=== PATIENT | male | born 1970 | race African-American/Black ===

== ENCOUNTER 2019-10-18 11:27 | Emergency (ER) | payer BC, OTHER ==
--- NOTE | 2019-10-18 12:27 | UC ---
FLU HPI - HPI Summary HPI Summary: started yesterday am with cough, fever (98-100F), sinus congestion, body aches and fatigue. No Flu vacc in years. denies known contact with COVID pos person, no recent travel. took OTC cold medicine with little relief - History of Current Complaint Chief Complaint: UCRespiratory Stated Complaint: RESP Time Seen by Provider: 10/18/19 11:31 Hx Obtained From: Patient Onset/Duration: Sudden Onset Severity Currently: None Associated Signs & Symptoms: Positive: Fever, Cough, Sore Throat - Allergy/Home Medications Allergies/Adverse Reactions: Allergies Allergy/AdvReac Type Severity Reaction Status Date / Time No Known Allergies Allergy Verified 08/31/16 13:17 Home Medications: Home Medications Pheniramine/P-Eph/Acetaminophn [Theraflu Flu & Sore Throat] 10/18/19 [History] PMH/Surg Hx/FS Hx/Imm Hx Previously Healthy: Yes - Surgical History Surgical History: Yes Surgery Procedure, Year, and Place: LT LUNG DRAINED,. left knee acl repair. DEVIATAED SEPTUM STRAIGHTENED. TONSILS - Family History Known Family History: Positive: None - Social History Occupation: Employed Full-time Lives: With Family Alcohol Use: Occasionally Substance Use Type: None Smoking Status (MU): Never Smoked Tobacco - Immunization History Most Recent Influenza Vaccination: no Review of Systems All Other Systems Reviewed And Are Negative: Yes Constitutional: Positive: Fever, Fatigue Skin: Positive: Negative ENT: Positive: Sinus Congestion. Negative: Sore Throat, Ear Ache Respiratory: Positive: Cough. Negative: Shortness Of Breath Cardiovascular: Positive: Negative, Chest Pain - burning CP with cough Gastrointestinal: Positive: Negative Musculoskeletal: Positive: Myalgia Neurological/Mental Status: Positive: Negative. Negative: Headache Psychological: Positive: Negative Is Patient Immunocompromised?: No Physical Exam - Summary Physical Exam Summary: To decrease the risk of transmission of possible COVID 19 this interview was done with telemedicine which does limit the physical examination Triage Information Reviewed: Yes Appearance: Well-Appearing, No Pain Distress, Well-Nourished Vital Signs Reviewed: Yes Eye Exam: Normal Eyes: Positive: Conjunctiva Clear ENT: Positive: Nasal congestion Neck exam: Normal Neck: Positive: Supple Respiratory: Positive: No respiratory distress, Other: - dry cough heard on telemed exam Neurological Exam: Normal Neurological: Positive: Alert Psychological Exam: Normal Flu Course/Dx - Course Course Of Treatment: Strep and flu were negative. 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 Patient will follow-up with [facility]. If the patient starts to feel worse they agree to report to the emergency department. - Differential Dx/Diagnosis Differential Diagnosis/HQI/PQRI: Bronchitis, Influenza, Upper Respiratory Infection, Other - COVID 19 Provider Diagnosis: Upper respiratory infection Discharge ED - Sign-Out/Discharge Documenting (check all that apply): Patient Departure All imaging exams completed and their final reports reviewed: No Studies - Discharge Plan Condition: Good Disposition: HOME Patient Education Materials: Upper Respiratory Infection (ED) Forms: COVID-19 Tested & Isolation Referrals: Bon Schuler MD [Primary Care Provider] - 1 Week (if no better) Additional Instructions: Your Strep and flu tests were negative. Given your symptoms, this could also be COVID 19 virus and therefore a COVID 19 test was obtained. Please follow-up with [facility]. If your symptoms worsen and you start to have difficulty breathing please call the Emergency room to alert them that you will be arriving for evaluation use your Theraflu from home for symptom relief Tylenol as directed for fever or pain - Billing Disposition and Condition Condition: GOOD Disposition: Home - Attestation Statements Provider Attestation: I was available for consult. This patient was seen by the RA. The patient was not presented to , seen by or examined by -Christos Fletcher MD
[2019-10-18 12:40] VITALS: BP 145/93
[2019-10-18 12:48] LABS: Influenza A Molecular Negative (Negative); Influenza B Molecular Negative (Negative)
== END 2019-10-18 13:12 | disposition home or self-care (01) ==
LOC: UCEAST 11:27
DX: J06.9 Acute upper respiratory infection, unspecified (principal); R50.9 Fever, unspecified; R05 Cough; J02.9 Acute pharyngitis, unspecified
CPT/HCPCS: 87651; 99211; G0463; U0002

== ENCOUNTER 2019-10-25 16:41 | Inpatient (IN) | payer OTHER ==
[2019-10-25] MEDS ORDERED: NS 0.9% 1000 ML** 1,000 ML IV ONE (17:05)
--- NOTE | 2019-10-25 17:09 | ED ---
HPI Febrile Illness - HPI Summary HPI Summary: 49 y/o male presented to [facility] after experiencing worsening COVID-19 symptoms in the past few days. Patient had a meeting in [place] on 10/12/19 and after returning to [place] began experiencing myalgia and headache. He tested positive for COVID-19 on 10/18/19. He is currently in self quarantine with his , who is also positive for COVID-19. In the past few days he has had productive cough , shortness of breath worsened by exertion, and fever. He was also slightly tachycardic in the room. He was instructed by the health department to come to the ED. Patient notes family history of diabetes and hypertension. He drinks alcohol, but does not smoke or use drugs. - History of Current Complaint Chief Complaint: EDShortnessOfBreath Time Seen by Provider: 10/25/19 16:43 Hx Obtained From: Patient Onset/Duration: Started Days Ago, Still Present Current Severity: Moderate Pain Intensity: 6 Pain Scale Used: 0-10 Numeric Associated Signs and Symptoms: Cough, Headache, Myalgia, SOB, Other: - fever, BETANCUR, tachycardia - Allergy/Home Medications Allergies/Adverse Reactions: Allergies Allergy/AdvReac Type Severity Reaction Status Date / Time No Known Allergies Allergy Verified 10/25/19 17:02 Home Medications: Home Medications Pheniramine/P-Eph/Acetaminophn [Theraflu Flu & Sore Throat] 1 packet PO DAILY PRN 10/18/19 [History Confirmed 10/25/19] PMH/Surg Hx/FS Hx/Imm Hx Endocrine/Hematology History: Reports: Hx Diabetes - type 2 Cardiovascular History: Reports: Hx Hypertension Denies: Hx Pacemaker/ICD Respiratory History: Reports: Hx Asthma History: Denies: Hx Renal Disease Sensory History: Denies: Hx Hearing Aid Psychiatric History: Denies: Hx Panic Disorder - Surgical History Surgery Procedure, Year, and Place: LT LUNG DRAINED,. left knee acl repair. DEVIATAED SEPTUM STRAIGHTENED. TONSILS Infectious Disease History: No Infectious Disease History: Denies: Traveled Outside the [place] in Last 30 Days - Family History Known Family History: Positive: Hypertension, Diabetes - Social History Alcohol Use: Occasionally Substance Use Type: Reports: None Smoking Status (MU): Never Smoked Tobacco Review of Systems Positive: Fever Positive: Other - tachycardia Positive: Shortness Of Breath, Cough, Other - BETANCUR Positive: Myalgia Positive: Headache All Other Systems Reviewed And Are Negative: Yes Physical Exam - Summary Physical Exam Summary: VITAL SIGNS: Reviewed. GENERAL: Patient is an obese male who is lying comfortable in the stretcher. Patient is not in any acute respiratory distress. HEAD AND FACE: No signs of trauma. No ecchymosis, hematomas or skull depressions. No sinus tenderness. EYES: PERRL, EOMI x 2, No injected conjunctiva, no nystagmus. EARS: Hearing grossly intact. Ear canals and tympanic membranes are within normal limits. MOUTH: Oropharynx within normal limits. NECK: Supple, trachea is midline, no adenopathy, no JVD, no carotid bruit, no c- spine tenderness, neck with full ROM. CHEST: Symmetric, no tenderness at palpation. LUNGS: Rhonchi in both lungs, crackles in both lung bases. Hypoxic with sat of 93 on RA CVS: Regular rhythm, slightly tachycardic, S1 and S2 present, no murmurs or gallops appreciated. ABDOMEN: Soft, non-tender. No signs of distention. No rebound, no guarding, and no masses palpated. Bowel sounds are normal. EXTREMITIES: FROM in all major joints, no edema, no cyanosis or clubbing. NEURO: Alert and oriented x 3. No acute neurological deficits. Speech is normal and follows commands. SKIN: Dry and warm. Triage Information Reviewed: Yes Vital Signs On Initial Exam: Initial Vitals Temp Pulse Resp BP Pulse Ox 103.1 F 105 20 141/77 93 10/25/19 16:57 10/25/19 16:57 10/25/19 16:57 10/25/19 16:57 10/25/19 16:57 Vital Signs Reviewed: Yes Procedures - Sedation Patient Received Moderate/Deep Sedation with Procedure: No Diagnostics - Vital Signs Vital Signs Temp Pulse Resp BP Pulse Ox 10/25/19 16:57 103.1 F 105 20 141/77 93 - Laboratory Result Diagrams: 10/25/19 17:30 10/25/19 17:30 Lab Statement: Any lab studies that have been ordered have been reviewed, and results considered in the medical decision making process. - Radiology chest xray Radiology Interpretation Completed By: ED Physician Summary of Radiographic Findings: Apparent cardiomegaly, vascular congestion, and left lower lobe infiltrate. This x-ray was reviewed and interpreted by the ED physician pending official read. - EKG 1756 Cardiac Rate: Tachycardia EKG Rhythm: Sinus Tachycardia Summary of EKG Findings: EKG at 1756 shows sinus tachycardia at 100bpm. No ST elevations. No STEMI. This EKG was reviewed and interpreted by the ED physician. Course/Dx - Course Assessment/Plan: 49 y/o male presented to [facility] after experiencing worsening COVID-19 symptoms in the past few days. Patient had a meeting in [place] on and after returning to [place] began experiencing myalgia and headache. He tested positive for COVID-19 on 10/18/19. He is currently in self quarantine with his , who is also positive for COVID-19. In the past few days he has had productive cough, shortness of breath worsened by exertion, and fever. He was also slightly tachycardic in the room. He was instructed by the health department to come to the ED. Patient notes family history of diabetes and hypertension. He drinks alcohol, but does not smoke or use drugs. In the ED course the patient was placed in a die maker bench stamping, IV access was obtained, IV fluids started at 100 CC per hour. I did not use 300/kg since the patient was positive for COVID-19. Past medical records reviewed. Blood test w/o a significant abnormality except for hemoglobin 13.4, hematocrit 39, lymphocytes of 0.9. D-dimer is 241. Sodium of 132, glucose 117, calcium 8.7, AST 65, AST 97, CPK 236 and CRP 122. Influenza A and B negative. CXR impression: Cardiomegaly. Questionable multifocal infiltrates. I started the patient with Azithromycin and Rocephin. I discussed the case with Dr. Montiel and she will admit patient to her service for further workup and management. - Diagnoses Provider Diagnoses: COVID-19, Pneumonia, Hypoxia - Provider Notifications Discussed Care Of Patient With: Marlys Montiel Time Discussed With Above Provider: 18:36 Instructed by Provider To: Other - Patient's case was discussed with Dr. Montiel, who will accept the patient for admission. Discharge ED - Sign-Out/Discharge Documenting (check all that apply): Patient Departure - admit - Discharge Plan Condition: Stable Disposition: ADMITTED TO [facility] Referrals: Bon Schuler MD [Medical Doctor] - - Billing Disposition and Condition Condition: STABLE Disposition: Admitted to [facility] - Attestation Statements Document Initiated by Jeanette: Yes Documenting Scribe: Rishabh Monsivais Provider For Whom Jeanette is Documenting (Include Credential): Raleigh Oh MD Scribe Attestation: Rishabh Powers, scribed for Raleigh Oh MD on 10/25/19 at 1851. Scribe Documentation Reviewed: Yes Provider Attestation: The documentation as recorded by the rudolphibRishabh ricci accurately reflects the service I personally performed and the decisions made by , Raleigh Oh MD Status of Scribe Document: Viewed
[2019-10-25] MEDS ORDERED: Acetaminophen TAB* 325 MG PO ONE (17:16)
[2019-10-25 18:08] LABS: ABS Lymphocytes 0.9 10^3/ul (1.0-4.8); ABS Monocytes 0.6 10^3/ul (0-0.8); ABS Neutrophils 6.2 10^3/ul (1.5-7.7); Eosinophil % 0.1 %; Hematocrit 39 % (42-52); Hemoglobin 13.4 g/dL (14.0-18.0); Lymphocyte % 11.9 %; Mean Corpuscular HGB Conc 34 g/dL (31-36); Mean Corpuscular Hemoglobin 29 pg (27-31); Mean Corpuscular Volume 85 fL (80-94); Mean Platelet Volume 8.2 fL (7.4-10.4); Nucleated Red Blood Cells % 0.1; Platelet Count 248 10^3/uL (150-450); Red Blood Count 4.62 10^6 /uL (4.18-5.48); Red Cell Distribution Width 13 % (10-15); White Blood Count 7.8 10^3/uL (3.5-10.8)
[2019-10-25] MEDS ORDERED: Azithromycin 500 mg/250 ml NS 500 MG/250 ML BAG IVPB ONE (18:24)
[2019-10-25] MEDS ORDERED: cefTRIAXone(*) 1 GM in NS 0.9% 50 ML* 50 ML IVPB ONE (18:24)
[2019-10-25 18:25] LABS: Albumin 3.7 g/dL (3.2-5.2); Albumin/Globulin Ratio 0.9 (1-3); C Reactive Protein 122.9 mg/L (<8.01); Calcium 8.5 mg/dL (8.6-10.3); EGFR African American 88.7 (>60); EGFR Non-African American 73.3 (>60); Globulin 3.9 g/dL (2-4); Phosphorus 2.5 mg/dL (2.5-5.0); Potassium 3.9 mmol/L (3.5-5.0); Total Bilirubin 0.6 mg/dL (0.2-1.0); Total Protein 7.6 g/dL (6.4-8.9)
[2019-10-25 18:27] LABS: Troponin I 0.01 ng/mL (<0.03)
[2019-10-25 18:29] LABS: CKMB ng/mL 1.1 ng/mL (0.6-6.3)
[2019-10-25 18:35] LABS: Influenza A Molecular Negative (Negative); Influenza B Molecular Negative (Negative)
[2019-10-25] MEDS ORDERED: Albuterol HFA INHALER* 8 gm MDI INH PRN (19:05)
[2019-10-25] MEDS ORDERED: Al Hydrox/Mg Hydrox/Simet LIQ* 30 ML UDC PO PRN (19:37)
[2019-10-25] MEDS ORDERED: Senna TAB 8.6 mg* TAB PO PRN (19:37)
[2019-10-25] MEDS ORDERED: Fluticasone NASAL SPRAY 50MCG* 16 gm SPRAY BTL BOTH NARES PRN (19:40)
[2019-10-25] MEDS ORDERED: Dextrose 50% Syringe 50 ML* 25 GM/50 ML SYRINGE IV PUSH PRN (19:56)
[2019-10-25] MEDS: Enoxaparin(*) 40 MG/0.4 ML SYR SUBCUT SCH (20:20)
--- NOTE | 2019-10-25 21:08 | HP ---
HISTORY AND PHYSICAL: DATE OF ADMISSION: ADDENDUM: Upon further review, I will be discontinuing the patient's IV fluids that Dr. Oh ordered as I am concerned that the patient may be post ARDS and I would like to avoid large volume fluids which is part of the sepsis bundle, but this is why I am avoiding it, and I am canceling the ceftriaxone because I do not believe that he needs bacterial pneumonia coverage. He does not have oligocytosis. He does not appear to have a focal consolidation on chest x-ray. Additionally, I did discuss the Plaquenil dosing with pharmacy. We do have a sufficient supply at this time, so I will be prescribing that in addition to the azithromycin at 400 mg p.o. b.i.d. for 1 day and then 400 mg daily for 4 days. CHRISTINE LAGUNA [id number]/[facility] #: [id number] [facility] MEDICAL CENTERLisa
[2019-10-25] MEDS: guaiFENesin ER TAB 600 MG PO SCH (21:47)
[2019-10-25] MEDS: Hydroxychloroquine TAB* 200 MG PO SCH (21:48)
--- NOTE | 2019-10-26 00:40 | HP ---
CC: Ralf Quigley NP * HISTORY AND PHYSICAL: DATE OF ADMISSION: 10/25/19 PROVIDER: CHRISTINE Henderson ATTENDING PHYSICIAN WHILE IN THE HOSPITAL: Dr. Marlys Montiel * (dictated by CHRISTINE Henderson) PRIMARY CARE PROVIDER: Ralf Quigley NP CHIEF COMPLAINT: Dyspnea on exertion and fever. HISTORY OF PRESENT ILLNESS: Bon Hernandez is a 49-year-old black male with past medical history significant for diabetes mellitus, type 2, and hypertension , who presents to the emergency department today due to noted fever and dyspnea on exertion that has been progressively worse. The patient started feeling significant body aches and "felt like I was hit by a truck" on 10/17/19. The following day, he went to an urgent care and was tested for COVID and approximately 3 to 4 days later, he was told that he was positive for COVID-19. Since that time, he has felt continued body aches that do feel somewhat better with Tylenol. He has been avoiding NSAIDs. He started having a cough 4 to 5 days ago and has been intermittently dry and intermittently productive. Additionally, he has nasal congestion and denies a sore throat. He has been checking his temperature everyday and has been afebrile until today. He has been feeling short of breath after coughing, but starting yesterday, he has been having dyspnea while exerting himself and having long recovery time afterwards. He has had intermittent nausea that goes away on its own. He has had a few episodes of diarrhea, but denies vomiting and abdominal pain. He has been having intermittent headaches as well that get better with Tylenol use. He denies chest pain. Of note, the patient used to live in this area and moved to [place], and recently has been back to this area, and has not yet established with Ralf Quigley in person, but does have a reestablishment primary care appointment scheduled for approximately 2 weeks from now. He has struggled with medication adherence due to insurance issues, and told me he was previously prescribed insulin and lisinopril, which he has not been taking. PAST MEDICAL HISTORY: 1. Hypertension. 2. Diabetes mellitus, type 2. 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 PAST SURGICAL HISTORY: 1. Tonsillectomy, adenoidectomy, and deviated septum repair to cure obstructive sleep apnea. 2. Left meniscus repair. HOME MEDICATIONS: 1. Thera-Flu 1 packet p.o. daily p.r.n. body aches, fever, chills. As previously mentioned, the patient has been prescribed insulin and lisinopril , which he has not been taking due to insurance issues. ALLERGIES: No known drug allergies. FAMILY HISTORY: Parents are living. His father and mother both have history of hypertension and otherwise no medical problems to his knowledge. Father is in his 80s and his mother is in early 60s. SOCIAL HISTORY: The patient works at the [employer]. He lives with his girlfriend and her 2 children. He has no kids of his own and is not . He does not use tobacco and never has, drinks infrequently such as approximately once a year, and denies illicit drug use. His medical surrogate decision maker is his girlfriend, Damaris Donovan, phone number [phone] and alternatively his sister, whose full name and number I was unable to collect. REVIEW OF SYSTEMS: An 11-point review of systems was completed. All pertinent positives and negatives are above in the HPI. All other systems are negative. PHYSICAL EXAMINATION GENERAL: Obese black male, who appears as stated age, lying upright in hospital bed, appearing comfortable, in no distress, not using respiratory muscles. VITAL SIGNS: Temperature 103.1, heart rate 108, respiratory rate 20, oxygen saturation 92% on room air but did have 89% on room air with exertion, blood pressure 141/77. HEENT: Eyes: PERRL. Sclerae anicteric. Left eyelid minimally more depressed than the right consistent with Manning's palsy diagnosis. ENT: Mucous membranes moist. NECK: Supple. Trachea midline. LUNGS: Clear to auscultation throughout. CARDIO: Regular rate and rhythm without murmurs, rubs, or gallops. ABDOMEN: Soft, nontender, nondistended. EXTREMITIES: No clubbing, cyanosis or edema. NEUROLOGIC: The patient is alert and oriented x3. Able to move all extremities. SKIN: Warm, dry, intact. DIAGNOSTIC STUDIES/LAB DATA: White blood cell count 7.8, hemoglobin 13.4, hematocrit 39, platelet count 248, percent neutrophils 80.1%, lymphocytes 11.9, absolute lymphocytes 0.9. D-dimer 241. ABG: pH 7.47, PCO2 of 32, PO2 of 70, HCO3 of 25, O2 sat 96. Sodium 132, potassium 3.9, chloride 101, carbon dioxide 23, anion gap 8, BUN 14, creatinine 0.18, glucose 117, lactic acid 0.8, calcium 8.5. AST 65, ALT 97, bili 0.6, alk phos 81. CRP 122.9. Influenza A and B negative. Chest x-ray formal radiologist report is pending, but on my read, there appears to be diffuse pulmonary edema bilaterally especially when compared to previous chest x-ray of 2016. ASSESSMENT AND PLAN: Bon Hernandez is a 49-year-old male with past medical history significant for hypertension, diabetes, and Manning's palsy, who presented to the emergency department today due to dyspnea on exertion. The patient will be admitted OBV for: 1. Dyspnea on exertion. This appears related to his active infection with COVID-19. I do have concern for progression to acute respiratory distress syndrome due to his diffuse appearance of pulmonary edema on chest x-ray by my read. At this time, he is oxygenating well on room air at rest, but does have a mild desaturation with ambulation. I am ordering continuous pulse oximetry with the patient. We will order p.r.n. albuterol every 2 hours though when he is resting, he appears to have not any at this time. He received a dose of azithromycin in the emergency department. I will continue this, but this does have very little data to support this as continued therapy. I will continue p.r.n. Tylenol as well and for symptomatic control, I will order guaifenesin and fluticasone nasal spray. Given the patient's ABG, it appears that he is minimally alkalotic and he would benefit from improved oxygenation and I will discuss this with nursing to start oxygen via nasal cannula. 2. Sepsis secondary to COVID-19. The patient is meeting criteria for sepsis. Blood cultures have been drawn and we should follow them, but it is less likely to be positive for bacterial infection considering we do know the source is coronavirus. He is receiving fluids and we will continue to monitor his heart rate with telemetry considering he is tachycardic and febrile. 3. Hypertension. The patient was very minimally hypertensive in the emergency department though this has overall improved. He is supposed to be taking lisinopril, but he has not been able to take it. If he does have continued hypertension, I would recommend starting him on amlodipine considering this has better effect in black patients. 4. Diabetes. I have ordered a carbohydrate consistent diet with lispro sliding scale. I have ordered a hemoglobin A1c considering the patient has not been taking insulin as has been previously prescribed. 5. FEN. Carbohydrate consistent diet as previously mentioned. Electrolytes are overall within normal limits, no need for replacement. The patient is to receive a liter of fluids. 6. DVT prophylaxis. The patient has a DVT risk score of 2. I have ordered Lovenox. 7. Code status. The patient is full code. We thoroughly discussed the possibility that he may require mechanical ventilation during this hospitalization. He understands this and remains full code. He wishes to be intubated if needed and is okay with mechanical ventilation if needed. TIME SPENT: Approximately 60 minutes was spent on this admission, approximately half this time was spent at bedside evaluating the patient and discussing the plan of care. This case has been reviewed by the attending, Dr. Marlys Montiel; she agrees with my plan of care. CHRISTINE HENDERSON ADDENDUM: Upon further review, I will be discontinuing the patient's IV fluids that Dr. Oh ordered as I am concerned that the patient may be in the early stages of ARDS and I would like to avoid large volume fluids which is part of the sepsis bundle. I am canceling the ceftriaxone because I do not believe that he needs bacterial pneumonia coverage. He does not have a leukocytosis. He does not appear to have a focal consolidation on chest x-ray. Additionally, I did discuss the Plaquenil dosing with pharmacy. We do have a sufficient supply at this time, so I will be prescribing that in addition to the azithromycin at 400 mg p.o. b.i.d. for 1 day and then 400 mg daily for 4 days. CHRISTINE HENDERSON [id number]/[facility] #: [id number]/[facility] #: [id number] JUSTIN
[2019-10-26] MEDS: Acetaminophen TAB* 325 MG PO PRN ×4 (03:45→23:49)
[2019-10-26 07:49] LABS: ABS Lymphocytes 1.3 10^3/ul (1.0-4.8); ABS Monocytes 0.7 10^3/ul (0-0.8); ABS Neutrophils 7.5 10^3/ul (1.5-7.7); Hematocrit 38 % (42-52); Hemoglobin 13.1 g/dL (14.0-18.0); Lymphocyte % 13.8 %; Mean Corpuscular HGB Conc 35 g/dL (31-36); Mean Corpuscular Hemoglobin 30 pg (27-31); Mean Corpuscular Volume 86 fL (80-94); Mean Platelet Volume 8.1 fL (7.4-10.4); Platelet Count 227 10^3/uL (150-450); Red Blood Count 4.36 10^6 /uL (4.18-5.48); Red Cell Distribution Width 14 % (10-15); White Blood Count 9.5 10^3/uL (3.5-10.8)
[2019-10-26] MEDS: Insulin LISPRO* 1 UNITS UNIT SUBCUT SCH ×3 (07:59→18:04)
[2019-10-26 08:10] LABS: Albumin 3.5 g/dL (3.2-5.2); Albumin/Globulin Ratio 0.9 (1-3); BUN/Creatinine Ratio 11.2 (8-20); Calcium 8.3 mg/dL (8.6-10.3); EGFR African American 89.6 (>60); EGFR Non-African American 74.1 (>60); Globulin 3.9 g/dL (2-4); Potassium 4.2 mmol/L (3.5-5.0); Total Bilirubin 0.6 mg/dL (0.2-1.0); Total Protein 7.4 g/dL (6.4-8.9)
[2019-10-26] MEDS: Hydroxychloroquine TAB* 200 MG PO SCH ×2 (08:29→20:00)
[2019-10-26] MEDS: guaiFENesin ER TAB 600 MG PO SCH ×2 (08:30→19:59)
[2019-10-26 13:06] LABS: C Reactive Protein 144.29 mg/L (<8.01)
--- NOTE | 2019-10-26 16:18 | PN ---
Subjective Date of Service: 10/26/19 Interval History: Mr. Hernandez states that he has a continued cough that is occasionally productive. He has dyspnea, particularly with exertion, and is seen in his room without supplemental O2. He continues to have fevers. He report diarrhea as well. No other complaints today. Objective Active Medications: Acetaminophen (Tylenol Tab*) 650 mg PO Q4H PRN PRN Reason: MILD PAIN or TEMP > 100.4 Last Admin: 10/26/19 12:38 Dose: 650 mg Al Hydrox/Mg Hydrox/Simethicone (Maalox Plus*) 30 ml PO Q6H PRN PRN Reason: INDIGESTION Albuterol (Ventolin Hfa Inhaler*) 2 puff INH Q2H PRN PRN Reason: SOB/WHEEZING Last Admin: 10/26/19 03:46 Dose: 2 puff Dextrose (D50w Syringe 50 Ml*) 12.5 gm IV PUSH .FOR FS < 60 - SS PRN PRN Reason: FS < 60 Enoxaparin Sodium (Lovenox(*)) 40 mg SUBCUT Q24H SANIYA Last Admin: 10/25/19 20:20 Dose: 40 mg Fluticasone Propionate (Flonase Nasal [place] 50mcg*) 2 spray BOTH NARES DAILY PRN PRN Reason: nasal congestion Guaifenesin (Mucinex*) 1,200 mg PO BID SANIYA Last Admin: 10/26/19 08:30 Dose: 1,200 mg Hydroxychloroquine Sulfate (Plaquenil Tab*) 400 mg PO BEDTIME SANIYA Stop: 10/29/19 21:01 Azithromycin (Zithromax 500 Mg/250 Ml) 500 mg in 250 mls @ 250 mls/hr IVPB Q24H [facility] Insulin Human Lispro (Humalog*) 0 units SUBCUT AC SANIYA; Protocol Last Admin: 10/26/19 12:13 Dose: Not Given Senna (Senokot 8.6 Mg Tab*) 1 tab PO BID PRN PRN Reason: CONSTIPATION Vital Signs: Temp Pulse Resp BP Pulse Ox 99.9 F 93 18 148/73 99 10/26/19 15:16 10/26/19 15:16 10/26/19 15:16 10/26/19 15:16 10/26/19 15:16 Oxygen Devices in Use Now: Nasal Cannula Appearance: Mr. Hernandez is an obese black 49M who is sitting up in bed. He has mild increased work of breathing and is currently not requiring supplemental O2 ; appears acutely ill, not septic-appearing. Eyes: No Scleral Icterus Neck: NL Appearance and Movements; NL JVP, Trachea Midline Respiratory: Symmetrical Chest Expansion and Respiratory Effort, Clear to Auscultation Cardiovascular: NL Sounds; No Murmurs; No JVD, No Edema, - - sinus tachycardia Abdominal: NL Sounds; No Tenderness; No Distention, No Hepatosplenomegaly Extremities: No Edema, No Clubbing, Cyanosis Neurological: Alert and Oriented x 3 Result Diagrams: 10/26/19 07:15 10/26/19 07:15 Assess/Plan/Problems-Billing Assessment: Mr. Hernandez is a 49M PMHx DM II, HTN, known positive COVID-19 who presented to the ER with complaints of BETANCUR and continued fever and was admitted due to concern for worsening pulmonary function and possible transition to ARDS. - Patient Problems (1) COVID-19 Comment: -with continued dyspnea, fever, cough -CXR with pulmonary edema concerning for progression to ARDS -desaturates with ambulation -continue azithromycin, hydroxychloroquine -continue symptomatic treatment -continue continuous pulse ox (2) Sepsis Comment: -fever, tachycardia -due to COVID-19 -continue to monitor (3) Hypertension Comment: -SBP 130-160's -currently not on any medications -continue to monitor; may need antihypertensives (4) Diabetes Comment: -HA1c 6.8 -has not required insulin thus far -will continue to monitor BG, but may d/c FS and lispro ss if continues with stable BG (5) DVT prophylaxis Comment: -enoxaparin (6) Full code status Status and Disposition: Inpatient. Discharge when stable.
[2019-10-26] MEDS: Azithromycin 500 mg/250 ml NS 500 MG/250 ML BAG IVPB SCH (18:15)
[2019-10-26] MEDS: Enoxaparin(*) 40 MG/0.4 ML SYR SUBCUT SCH (20:00)
[2019-10-27] MEDS: guaiFENesin ER TAB 600 MG PO SCH ×2 (07:49→22:15)
[2019-10-27] MEDS: Insulin LISPRO* 1 UNITS UNIT SUBCUT SCH ×2 (08:16→11:42)
--- NOTE | 2019-10-27 13:45 | PN ---
Subjective Date of Service: 10/27/19 Interval History: Mr. Hernandez is feeling slightly better today. SOB is improved from admission, but he is still having significant SOB with any exertion. He does note that it takes him a few minutes to recover after ambulating to the bathroom. Still coughing, nonproductive. Denies CP. No concerns from nursing. Family History: Unchanged from Admission Social History: Unchanged from Admission Past Medical History: Unchanged from Admission Objective Active Medications: Acetaminophen (Tylenol Tab*) 650 mg PO Q4H PRN MILD PAIN or TEMP > 100.4 Al Hydrox/Mg Hydrox/Simethicone (Maalox Plus*) 30 ml PO Q6H PRN INDIGESTION Albuterol (Ventolin Hfa Inhaler*) 2 puff INH Q2H PRN SOB/WHEEZING Dextrose (D50w Syringe 50 Ml*) 12.5 gm IV PUSH .FOR FS < 60 - SS PRN FS < 60 Enoxaparin Sodium (Lovenox(*)) 40 mg SUBCUT Q24H SANIYA Fluticasone Propionate (Flonase Nasal [place] 50mcg*) 2 spray BOTH NARES DAILY PRN nasal congestion Guaifenesin (Mucinex*) 1,200 mg PO BID SANIYA Hydroxychloroquine Sulfate (Plaquenil Tab*) 400 mg PO BEDTIME SANIYA Azithromycin (Zithromax 500 Mg/250 Ml) 500 mg in 250 mls @ 250 mls/hr IVPB Q24H [facility] Insulin Human Lispro (Humalog*) 0 units SUBCUT AC SANIYA; Protocol Senna (Senokot 8.6 Mg Tab*) 1 tab PO BID PRN CONSTIPATION Vital Signs - 8 hr 10/27/19 10/27/19 10/27/19 07:40 08:00 12:00 Temperature 98.2 F 97.6 F Pulse Rate 89 91 Respiratory 22 22 28 Rate Blood Pressure 148/93 157/95 (mmHg) O2 Sat by Pulse 97 96 Oximetry Oxygen Devices in Use Now: Nasal Cannula - 1L Appearance: Middle-aged male sitting in bed, ill-appearing, but in NAD Ears/Nose/Mouth/Throat: Mucous Membranes Moist Neck: NL Appearance and Movements; NL JVP, Trachea Midline Respiratory: Symmetrical Chest Expansion and Respiratory Effort, Clear to Auscultation Cardiovascular: NL Sounds; No Murmurs; No JVD, RRR Neurological: Alert and Oriented x 3 Lines/Tubes/Other Access: Clean, Dry and Intact Peripheral IV Nutrition: Taking PO's Result Diagrams: 10/26/19 07:15 10/26/19 07:15 Assess/Plan/Problems-Billing Assessment: Mr. Hernandez is a 49 yo M with PMH of DM II, HTN; known positive COVID-19 who presented to the ER with complaints of BETANCUR and continued fever and was admitted due to concern for worsening pulmonary function and possible transition to ARDS. - Patient Problems (1) COVID-19 Code(s): U07.1 - Comment: - Slightly improved, but still with continued dyspnea, fever, cough - CXR with pulmonary edema concerning for progression to ARDS - Desaturates with ambulation: down to 88% on RA while ambulating - Continuious pulse ox - Continue azithromycin, hydroxychloroquine (2) Acute respiratory failure with hypoxia Code(s): J96.01 - ACUTE RESPIRATORY FAILURE WITH HYPOXIA Comment: - Secondary to COVID - Down to 1L but still desating with ambulation - Wean as tolerated (3) Sepsis Comment: - Present on admission with fever, tachycardia - Secondary to COVID-19 (4) Hypertension Code(s): I10 - ESSENTIAL (PRIMARY) HYPERTENSION Comment: - Intermittent HTN - Currently not on any medications - Continue to monitor; may need antihypertensive at d/c (5) Diabetes Code(s): E11.9 - TYPE 2 DIABETES MELLITUS WITHOUT COMPLICATIONS Comment: - A1c 6.8 - Has not required insulin thus far, will d/c insulin (6) DVT prophylaxis Code(s): Z29.9 - ENCOUNTER FOR PROPHYLACTIC MEASURES, UNSPECIFIED Comment: - Lovenox (7) Full code status Code(s): Z78.9 - OTHER SPECIFIED HEALTH STATUS Comment: Status and Disposition: Inpatient. Discharge home when stable. Attending: Chanel Montana
[2019-10-27] MEDS: Azithromycin 500 mg/250 ml NS 500 MG/250 ML BAG IVPB SCH (18:25)
[2019-10-27] MEDS: Enoxaparin(*) 40 MG/0.4 ML SYR SUBCUT SCH (22:14)
[2019-10-27] MEDS: Hydroxychloroquine TAB* 200 MG PO SCH (22:43)
[2019-10-28] MEDS: amLODIPine TAB* 5 MG PO SCH (08:11)
[2019-10-28] MEDS: guaiFENesin ER TAB 600 MG PO SCH ×2 (08:11→21:28)
[2019-10-28 09:17] LABS: ABS Eosinophils 0.2 10^3/ul (0-0.6); ABS Lymphocytes 1.1 10^3/ul (1.0-4.8); ABS Monocytes 0.8 10^3/ul (0-0.8); ABS Neutrophils 4.5 10^3/ul (1.5-7.7); Eosinophil % 2.9 %; Hematocrit 40 % (42-52); Hemoglobin 13.4 g/dL (14.0-18.0); Lymphocyte % 16.8 %; Mean Corpuscular HGB Conc 33 g/dL (31-36); Mean Corpuscular Hemoglobin 29 pg (27-31); Mean Corpuscular Volume 88 fL (80-94); Nucleated Red Blood Cells % 0.1; Platelet Count 270 10^3/uL (150-450); Red Blood Count 4.59 10^6 /uL (4.18-5.48); Red Cell Distribution Width 14 % (10-15); White Blood Count 6.6 10^3/uL (3.5-10.8)
[2019-10-28 09:39] LABS: Albumin 3.5 g/dL (3.2-5.2); Albumin/Globulin Ratio 0.8 (1-3); BUN/Creatinine Ratio 15.2 (8-20); C Reactive Protein 103.19 mg/L (<8.01); EGFR African American 106.7 (>60); EGFR Non-African American 88.2 (>60); Globulin 4.2 g/dL (2-4); Potassium 4.6 mmol/L (3.5-5.0); Total Bilirubin 0.6 mg/dL (0.2-1.0); Total Protein 7.7 g/dL (6.4-8.9)
--- NOTE | 2019-10-28 14:29 | PN ---
Subjective Date of Service: 10/28/19 Interval History: Mr. Hernandez is feeling a little better. Still SOB with exertion, just to and from the bathroom. He reports when he returns from the bathroom and reconnects the pulse ox, he is 88-89% and takes approx 5-10 minutes to recover back into the 90s. Cough present, but decreased. No concerns from nursing. Family History: Unchanged from Admission Social History: Unchanged from Admission Past Medical History: Unchanged from Admission Objective Active Medications: Acetaminophen (Tylenol Tab*) 650 mg PO Q4H PRN MILD PAIN or TEMP > 100.4 Al Hydrox/Mg Hydrox/Simethicone (Maalox Plus*) 30 ml PO Q6H PRN INDIGESTION Albuterol (Ventolin Hfa Inhaler*) 2 puff INH Q2H PRN SOB/WHEEZING Amlodipine Besylate (Norvasc Tab*) 5 mg PO DAILY SANIYA Enoxaparin Sodium (Lovenox(*)) 40 mg SUBCUT Q24H SANIYA Fluticasone Propionate (Flonase Nasal [place] 50mcg*) 2 spray BOTH NARES DAILY PRN nasal congestion Guaifenesin (Mucinex*) 1,200 mg PO BID SANIYA Hydroxychloroquine Sulfate (Plaquenil Tab*) 400 mg PO BEDTIME SANIYA Azithromycin (Zithromax 500 Mg/250 Ml) 500 mg in 250 mls @ 250 mls/hr IVPB Q24H [facility]IYA Senna (Senokot 8.6 Mg Tab*) 1 tab PO BID PRN CONSTIPATION Vital Signs - 8 hr 10/28/19 10/28/19 10/28/19 07:39 08:00 11:53 Temperature 98.1 F 97.9 F Pulse Rate 70 81 Respiratory 20 20 20 Rate Blood Pressure 128/63 145/72 (mmHg) O2 Sat by Pulse 95 94 Oximetry Oxygen Devices in Use Now: Nasal Cannula - 1L Appearance: Middle-aged male lying in bed, dyspneic while talking, but in NAD Neck: NL Appearance and Movements; NL JVP, Trachea Midline Respiratory: Symmetrical Chest Expansion and Respiratory Effort, Clear to Auscultation Cardiovascular: NL Sounds; No Murmurs; No JVD, RRR Neurological: Alert and Oriented x 3 Lines/Tubes/Other Access: Clean, Dry and Intact Peripheral IV Nutrition: Taking PO's Result Diagrams: 10/28/19 08:59 10/28/19 08:59 Assess/Plan/Problems-Billing Assessment: Mr. Hernandez is a 49 yo M with PMH of DM II, HTN; known positive COVID-19 who presented to the ER with complaints of BETANCUR and continued fever and was admitted due to concern for worsening pulmonary function and possible transition to ARDS. - Patient Problems (1) COVID-19 Code(s): U07.1 - Comment: - Slightly improved, but still with continued dyspnea, fever, cough - CXR with pulmonary edema concerning for progression to ARDS - Desaturates with ambulation: down to 88% on RA while ambulating, takes >5 min to recover - Continuious pulse ox - Continue hydroxychloroquine (2) Acute respiratory failure with hypoxia Code(s): J96.01 - ACUTE RESPIRATORY FAILURE WITH HYPOXIA Comment: - Secondary to COVID - Down to 1L but still desating with ambulation - Wean as tolerated (3) Sepsis Comment: - Present on admission with fever, tachycardia - Secondary to COVID-19 (4) Hypertension Code(s): I10 - ESSENTIAL (PRIMARY) HYPERTENSION Comment: - Intermittent HTN - Start amlodipine today (5) Diabetes Code(s): E11.9 - TYPE 2 DIABETES MELLITUS WITHOUT COMPLICATIONS Comment: - A1c 6.8 - FS and insulin d/c'd (6) DVT prophylaxis Code(s): Z29.9 - ENCOUNTER FOR PROPHYLACTIC MEASURES, UNSPECIFIED Comment: - Lovenox (7) Full code status Code(s): Z78.9 - OTHER SPECIFIED HEALTH STATUS Comment: Status and Disposition: Inpatient. Discharge home when stable. Attending: Cahnel [place]
[2019-10-28] MEDS: Acetaminophen TAB* 325 MG PO PRN (14:39)
[2019-10-28] MEDS: Enoxaparin(*) 40 MG/0.4 ML SYR SUBCUT SCH (19:32)
[2019-10-28] MEDS: Hydroxychloroquine TAB* 200 MG PO SCH (21:20)
[2019-10-29] MEDS: amLODIPine TAB* 5 MG PO SCH (08:30)
[2019-10-29] MEDS: guaiFENesin ER TAB 600 MG PO SCH ×2 (08:30→20:33)
--- NOTE | 2019-10-29 10:40 | PN ---
Subjective - Subjective Date of Service: 10/29/19 History: 49 year old diabetic man, recently on no medication after losing insurance, here with COVID; diarrhea resolved, formed stools today. His appetite is good. Short of breath and headache after coughing spells but not at rest. No LE swelling, rash, or fever. Active Problems: Active Problems Acute respiratory failure with hypoxia (Acute) J96.01 - Secondary to COVID - Down to 1L but still desating with ambulation - Wean as tolerated COVID-19 (Acute) U07.1 - Slightly improved, but still with continued dyspnea, fever, cough - CXR with pulmonary edema concerning for progression to ARDS - Desaturates with ambulation: down to 88% on RA while ambulating, takes >5 min to recover - Continuious pulse ox - Continue hydroxychloroquine DVT prophylaxis (Acute) Z29.9 - Lovenox Diabetes (Acute) E11.9 - A1c 6.8 - FS and insulin d/c'd Full code status (Acute) Z78.9 Hypertension (Acute) I10 - Intermittent HTN - Start amlodipine today Sepsis (Acute) - Present on admission with fever, tachycardia - Secondary to COVID-19 Current Medications: Current Medications Acetaminophen (Tylenol Tab*) 650 mg PO Q4H PRN PRN Reason: MILD PAIN or TEMP > 100.4 Last Admin: 10/28/19 14:39 Dose: 650 mg Al Hydrox/Mg Hydrox/Simethicone (Maalox Plus*) 30 ml PO Q6H PRN PRN Reason: INDIGESTION Albuterol (Ventolin Hfa Inhaler*) 2 puff INH Q2H PRN PRN Reason: SOB/WHEEZING Last Admin: 10/26/19 03:46 Dose: 2 puff Amlodipine Besylate (Norvasc Tab*) 5 mg PO DAILY [facility] Last Admin: 10/29/19 08:30 Dose: 5 mg Enoxaparin Sodium (Lovenox(*)) 40 mg SUBCUT Q24H [facility] Last Admin: 10/28/19 19:32 Dose: 40 mg Fluticasone Propionate (Flonase Nasal [place] 50mcg*) 2 spray BOTH NARES DAILY PRN PRN Reason: nasal congestion Guaifenesin (Mucinex*) 1,200 mg PO BID [facility] Last Admin: 10/29/19 08:30 Dose: 1,200 mg Hydroxychloroquine Sulfate (Plaquenil Tab*) 400 mg PO BEDTIME SANIYA Stop: 10/29/19 21:01 Last Admin: 10/28/19 21:20 Dose: 400 mg Senna (Senokot 8.6 Mg Tab*) 1 tab PO BID PRN PRN Reason: CONSTIPATION Home Medications: Home Medications Medication Instructions Recorded Confirmed Type Pheniramine/P-Eph/Acetaminophn 1 packet PO DAILY PRN 10/18/19 10/25/19 History [Theraflu Flu & Sore Throat] Allergies: Allergies Allergy/AdvReac Type Severity Reaction Status Date / Time No Known Allergies Allergy Verified 10/25/19 17:02 Objective - Vital Signs Vital Signs: Vital Signs 10/28/19 10/28/19 10/28/19 11:53 14:54 19:27 Temperature 36.6 C 37.2 C 36.2 C Pulse Rate 81 81 79 Respiratory 20 18 28 Rate Blood Pressure 145/72 151/62 154/88 (mmHg) O2 Sat by Pulse 94 96 97 Oximetry 10/28/19 10/28/19 10/28/19 19:45 23:00 23:11 Temperature 36.6 C 36.5 C Pulse Rate 80 96 Respiratory 28 24 20 Rate Blood Pressure 155/96 127/59 (mmHg) O2 Sat by Pulse 97 91 Oximetry 10/29/19 10/29/19 10/29/19 02:48 08:00 08:29 Temperature 36.5 C 36.4 C Pulse Rate 81 88 Respiratory 24 20 20 Rate Blood Pressure 150/97 155/84 (mmHg) O2 Sat by Pulse 98 95 Oximetry - Intake and Output Intake and Output: Intake & Output 10/27/19 10/28/19 10/29/19 10/30/19 06:59 06:59 06:59 06:59 Intake Total 3165 3350 2780 Balance 3165 3350 2780 Intake: IV Fluids 45 250 Azithromycin 250 NS 45 IVPB 520 Azithromycin 520 Oral 2600 3100 2780 Other: Estimated Void Large Medium # Bowel Movements 1 1 1 Estimated Stool Amount Medium Medium Large # Voids 2 1 ADLs: Meal Record Start: 10/25/19 20: 00 Freq: DAILY@0900,1400,1800 Status: Active Protocol: Created 10/25/19 20:00 System (Rec: 10/25/19 20:00 System MED-C04) Document 10/26/19 09:00 [id number] (Rec: 10/26/19 12:12 [id number] MED-C14) Document 10/26/19 14:00 [id number] (Rec: 10/26/19 14:42 [id number] MED-C04) Document 10/26/19 20:00 [id number] (Rec: 10/27/19 03:58 [id number] MED-C04) Document 10/27/19 09:00 [id number] (Rec: 10/27/19 09:51 [id number] MED-C02) Document 10/27/19 14:00 [id number] (Rec: 10/27/19 14:58 [id number] MED-C13) Document 10/27/19 18:00 [id number] (Rec: 10/27/19 22:25 [id number] MED-M16) Document 10/28/19 09:00 [id number] (Rec: 10/28/19 10:12 [id number] MED-C14) Document 10/28/19 14:00 [id number] (Rec: 10/28/19 14:54 [id number] MED-C14) Document 10/28/19 18:00 [id number] (Rec: 10/28/19 18:21 [id number] MED-C14) Intake and Output Start: 10/25/19 17: 01 Freq: Status: Active Protocol: Created 10/25/19 17:01 System (Rec: 10/25/19 17:01 System [id number]) Intake and Output Start: 10/25/19 20: 00 Freq: DAILY@0600,1400,2200 Status: Active Protocol: Created 10/25/19 20:00 System (Rec: 10/25/19 20:00 System MED-C04) Document 10/25/19 22:00 [id number] (Rec: 10/26/19 00:18 [id number] MED-C04) Document 10/26/19 06:00 [id number] (Rec: 10/26/19 06:13 [id number] MED-C04) Document 10/26/19 14:00 [id number] (Rec: 10/26/19 18:35 [id number] MED-C04) Document 10/27/19 14:00 [id number] (Rec: 10/27/19 15:01 [id number] MED-C13) Document 10/27/19 22:00 [id number] (Rec: 10/27/19 22:31 [id number] MED-M16) Document 10/28/19 04:51 [id number] (Rec: 10/28/19 04:51 [id number] MED-C04) Document 10/28/19 09:41 [id number] (Rec: 10/28/19 09:41 [id number] MED-C14) Document 10/28/19 11:54 [id number] (Rec: 10/28/19 11:55 [id number] MED-C14) Document 10/28/19 21:36 [id number] (Rec: 10/28/19 21:36 [id number] MED-C15) Document 10/29/19 06:00 [id number] (Rec: 10/29/19 07:18 [id number] TELE-M17) - Physical Exam General Physical Exam Comment: appears comfortable, breathing comfortably Skin: Abnormal: Other - rash Lungs and Chest: Yes: Chest Expansion Full, Other - clear to auscultation Heart Rate and Rhythm: Normal Abdominal Exam: Yes: Soft, Bowel Sounds Present - non tender - Neuro Orientation: A/O x3 Psychiatric: Normal Speech: Normal Assessment - Problem List Assessment: Patient Problems Acute respiratory failure with hypoxia (Acute) COVID-19 (Acute) DVT prophylaxis (Acute) Diabetes (Acute) Full code status (Acute) Hypertension (Acute) Sepsis (Acute) Plan: 1. COVID19 continue supportive care, O2 supplementation, and plaquenil 2. AM BG when labs obtained, have been acceptable here 3. HTN Amlodipine 4. DVT prophylaxis lovenox 5. Full code
--- NOTE | 2019-10-29 10:48 | PN ---
Hospitalist Progress Note Date of Service: 10/29/19 Patient was seen by Dr. Avendano today, so Hospital Medicine will defer rounding until tomorrow to limit exposure. Case was discussed with ID. No changes at this time.
[2019-10-29] MEDS: Acetaminophen TAB* 325 MG PO PRN (13:17)
[2019-10-29] MEDS: Hydroxychloroquine TAB* 200 MG PO SCH (20:32)
[2019-10-29] MEDS: Enoxaparin(*) 40 MG/0.4 ML SYR SUBCUT SCH (20:34)
[2019-10-30] MEDS: amLODIPine TAB* 5 MG PO SCH (08:33)
[2019-10-30] MEDS: guaiFENesin ER TAB 600 MG PO SCH ×2 (08:33→20:51)
--- NOTE | 2019-10-30 10:45 | PN ---
Subjective - Subjective Date of Service: 10/30/19 History: 49 year old diabetic man admitted with COVID19 dyspnea, hypoxia. He is continuing to improve, less short of breath after coughing, still short of breath when out of bed. Formed stools, no abd pain. Appetite is good. No pain , rash or fever. Active Problems: Active Problems Acute respiratory failure with hypoxia (Acute) J96.01 - Secondary to COVID - Down to 1L but still desating with ambulation - Wean as tolerated COVID-19 (Acute) U07.1 - Slightly improved, but still with continued dyspnea, fever, cough - CXR with pulmonary edema concerning for progression to ARDS - Desaturates with ambulation: down to 88% on RA while ambulating, takes >5 min to recover - Continuious pulse ox - Continue hydroxychloroquine DVT prophylaxis (Acute) Z29.9 - Lovenox Diabetes (Acute) E11.9 - A1c 6.8 - FS and insulin d/c'd Full code status (Acute) Z78.9 Hypertension (Acute) I10 - Intermittent HTN - Start amlodipine today Sepsis (Acute) - Present on admission with fever, tachycardia - Secondary to COVID-19 Current Medications: Current Medications Acetaminophen (Tylenol Tab*) 650 mg PO Q4H PRN PRN Reason: MILD PAIN or TEMP > 100.4 Last Admin: 10/29/19 13:17 Dose: 650 mg Al Hydrox/Mg Hydrox/Simethicone (Maalox Plus*) 30 ml PO Q6H PRN PRN Reason: INDIGESTION Albuterol (Ventolin Hfa Inhaler*) 2 puff INH Q2H PRN PRN Reason: SOB/WHEEZING Last Admin: 10/26/19 03:46 Dose: 2 puff Amlodipine Besylate (Norvasc Tab*) 5 mg PO DAILY [facility] Last Admin: 10/30/19 08:33 Dose: 5 mg Enoxaparin Sodium (Lovenox(*)) 40 mg SUBCUT Q24H [facility] Last Admin: 10/29/19 20:34 Dose: 40 mg Fluticasone Propionate (Flonase Nasal [place] 50mcg*) 2 spray BOTH NARES DAILY PRN PRN Reason: nasal congestion Guaifenesin (Mucinex*) 1,200 mg PO BID [facility] Last Admin: 10/30/19 08:33 Dose: 1,200 mg Senna (Senokot 8.6 Mg Tab*) 1 tab PO BID PRN PRN Reason: CONSTIPATION Home Medications: Home Medications Medication Instructions Recorded Confirmed Type Pheniramine/P-Eph/Acetaminophn 1 packet PO DAILY PRN 10/18/19 10/25/19 History [Theraflu Flu & Sore Throat] Allergies: Allergies Allergy/AdvReac Type Severity Reaction Status Date / Time No Known Allergies Allergy Verified 10/25/19 17:02 Objective - Vital Signs Vital Signs: Vital Signs 10/29/19 10/29/19 10/29/19 12:25 15:26 20:00 Temperature 36.3 C 36.3 C Pulse Rate 96 87 Respiratory 20 20 19 Rate Blood Pressure 152/94 154/92 (mmHg) O2 Sat by Pulse 97 98 Oximetry 10/29/19 10/30/19 10/30/19 20:28 00:00 02:53 Temperature 36.9 C 36.4 C 36.1 C Pulse Rate 88 82 78 Respiratory 19 19 18 Rate Blood Pressure 150/92 152/95 142/93 (mmHg) O2 Sat by Pulse 94 98 97 Oximetry 10/30/19 10/30/19 07:53 08:00 Temperature 36.6 C Pulse Rate 82 Respiratory 18 18 Rate Blood Pressure 150/90 (mmHg) O2 Sat by Pulse 93 Oximetry - Intake and Output Intake and Output: Intake & Output 10/28/19 10/29/19 10/30/19 10/31/19 06:59 06:59 06:59 06:59 Intake Total 3350 2780 4040 Balance 3350 2780 4040 Intake: IV Fluids 250 Azithromycin 250 Oral 3100 2780 4040 Other: Estimated Void Medium Medium # Bowel Movements 1 1 0 Estimated Stool Amount Medium Large # Voids 1 1 ADLs: Meal Record Start: 10/25/19 20: 00 Freq: DAILY@0900,1400,1800 Status: Active Protocol: Created 10/25/19 20:00 System (Rec: 10/25/19 20:00 System MED-C04) Document 10/26/19 09:00 [id number] (Rec: 10/26/19 12:12 [id number] MED-C14) Document 10/26/19 14:00 [id number] (Rec: 10/26/19 14:42 [id number] MED-C04) Document 10/26/19 20:00 [id number] (Rec: 10/27/19 03:58 [id number] MED-C04) Document 10/27/19 09:00 [id number] (Rec: 10/27/19 09:51 [id number] MED-C02) Document 10/27/19 14:00 [id number] (Rec: 10/27/19 14:58 [id number] MED-C13) Document 10/27/19 18:00 [id number] (Rec: 10/27/19 22:25 [id number] MED-M16) Document 10/28/19 09:00 [id number] (Rec: 10/28/19 10:12 [id number] MED-C14) Document 10/28/19 14:00 [id number] (Rec: 10/28/19 14:54 [id number] MED-C14) Document 10/28/19 18:00 [id number] (Rec: 10/28/19 18:21 [id number] MED-C14) Document 10/29/19 09:00 [id number] (Rec: 10/29/19 12:25 [id number] MED-M16) Document 10/29/19 14:00 [id number] (Rec: 10/29/19 15:44 [id number] MED-C15) Document 10/29/19 18:00 [id number] (Rec: 10/29/19 22:42 [id number] MED-C15) Intake and Output Start: 10/25/19 17: 01 Freq: Status: Active Protocol: Created 10/25/19 17:01 System (Rec: 10/25/19 17:01 System EDRM-C15) Intake and Output Start: 10/25/19 20: 00 Freq: DAILY@0600,1400,2200 Status: Active Protocol: Created 10/25/19 20:00 System (Rec: 10/25/19 20:00 System MED-C04) Document 10/25/19 22:00 [id number] (Rec: 10/26/19 00:18 [id number] MED-C04) Document 10/26/19 06:00 [id number] (Rec: 10/26/19 06:13 [id number] MED-C04) Document 10/26/19 14:00 [id number] (Rec: 10/26/19 18:35 [id number] MED-C04) Document 10/27/19 14:00 [id number] (Rec: 10/27/19 15:01 [id number] MED-C13) Document 10/27/19 22:00 [id number] (Rec: 10/27/19 22:31 [id number] MED-M16) Document 10/28/19 04:51 [id number] (Rec: 10/28/19 04:51 [id number] MED-C04) Document 10/28/19 09:41 [id number] (Rec: 10/28/19 09:41 [id number] MED-C14) Document 10/28/19 11:54 [id number] (Rec: 10/28/19 11:55 [id number] MED-C14) Document 10/28/19 21:36 [id number] (Rec: 10/28/19 21:36 [id number] MED-C15) Document 10/29/19 06:00 [id number] (Rec: 10/29/19 07:18 [id number] TELE-M17) Document 10/29/19 14:00 [id number] (Rec: 10/29/19 15:45 [id number] MED-C15) Document 10/29/19 22:00 [id number] (Rec: 10/29/19 23:40 [id number] MED-C15) Document 10/30/19 06:00 [id number] (Rec: 10/30/19 07:42 [id number] MED-C15) - Physical Exam General Physical Exam Comment: appears comfortable Skin: Abnormal: Other - no rash Neck: Yes Other - no mass Lungs and Chest: Yes: Chest Expansion Full, Other - no rales Heart Rate and Rhythm: Regular JVP: Not Elevated Additional Cardiovascular: Yes: Normal Heart Sounds Abdominal Exam: Yes: Soft, Other - non tender - Neuro Orientation: A/O x3 Psychiatric: Normal Speech: Normal Assessment - Problem List Assessment: Patient Problems Acute respiratory failure with hypoxia (Acute) COVID-19 (Acute) DVT prophylaxis (Acute) Diabetes (Acute) Full code status (Acute) Hypertension (Acute) Sepsis (Acute) Plan: 1. COVID19 with acute hypoxemic respiratory failure, improving, continue supportive care and plaquenil, home O2 set up for possible DC 10/31/19 2. T2 diabetes mellitus, AM BG have been acceptable, recheck labs tomorrow 3. morbid obesity 4. HTN amplodipine started here 5. DVT prophylaxis 6. Full code
[2019-10-30] MEDS: Enoxaparin(*) 40 MG/0.4 ML SYR SUBCUT SCH (20:51)
[2019-10-31 06:35] LABS: Hematocrit 40 % (42-52); Hemoglobin 13.5 g/dL (14.0-18.0); Mean Corpuscular HGB Conc 34 g/dL (31-36); Mean Corpuscular Hemoglobin 29 pg (27-31); Mean Corpuscular Volume 87 fL (80-94); Mean Platelet Volume 7.7 fL (7.4-10.4); Platelet Count 368 10^3/uL (150-450); Red Blood Count 4.63 10^6 /uL (4.18-5.48); Red Cell Distribution Width 14 % (10-15); White Blood Count 5.8 10^3/uL (3.5-10.8)
[2019-10-31 06:51] LABS: Albumin 3.6 g/dL (3.2-5.2); Albumin/Globulin Ratio 0.9 (1-3); BUN/Creatinine Ratio 13.3 (8-20); C Reactive Protein 32.27 mg/L (<8.01); Calcium 9.1 mg/dL (8.6-10.3); EGFR African American 109.4 (>60); EGFR Non-African American 90.4 (>60); Potassium 4.4 mmol/L (3.5-5.0); Total Bilirubin 0.4 mg/dL (0.2-1.0); Total Protein 7.6 g/dL (6.4-8.9)
[2019-10-31 07:36] LABS: ABS Basophils 0.1 10^3/ul (0-0.2); ABS Eosinophils 0.2 10^3/ul (0-0.6); ABS Lymphocytes 1.7 10^3/ul (1.0-4.8); ABS Monocytes 0.6 10^3/ul (0-0.8); ABS Neutrophils 3.2 10^3/ul (1.5-7.7); Eosinophil % 4.1 %; Lymphocyte % 28.6 %; Nucleated Red Blood Cells % 0.1
[2019-10-31] MEDS: Acetaminophen TAB* 325 MG PO PRN (08:14)
[2019-10-31] MEDS: guaiFENesin ER TAB 600 MG PO SCH (08:14)
[2019-10-31] MEDS: amLODIPine TAB* 5 MG PO SCH (08:15)
[2019-10-31 15:52] VITALS: BP 142/103
--- NOTE | 2019-10-31 20:12 | DS ---
CC: Ralf Quigley NP * DISCHARGE SUMMARY: DATE OF ADMISSION: 10/25/19 DATE OF DISCHARGE: 10/31/19 PRIMARY CARE PROVIDER: Ralf Quigley NP PRINCIPAL DIAGNOSIS: COVID-19. SECONDARY DIAGNOSES: 1. Hypertension. 2. Type 2 diabetes. DISCHARGE MEDICATIONS: 1. Guaifenesin 1200 mg p.o. b.i.d. p.r.n. congestion. 2. Amlodipine 5 mg p.o. daily. HOSPITAL COURSE: Mr. Hernandez is a 49-year-old male who presented to the emergency room on 10/25/19 with complaints of dyspnea on exertion and fever. The patient was tested for COVID on 10/18/19 and approximately 3 to 4 days later was told that he was positive. The patient has been using Tylenol for body aches. He began to have a cough 4 to 5 days prior to admission. The patient presented to the emergency room due to the dyspnea on exertion and fever. The patient required supplemental oxygen. Over the course of the next 4 days, the patient improved in terms of his respiratory status. His coughing episodes were less frequent and he recovered quicker from them. He is much less short of breath with exertion. He does, however, still get short of breath when he gets up to the bathroom. The patient is being discharged home with supplemental oxygen. In terms of the patient's hypertension, he was started on amlodipine in the hospital. Blood pressures have been moderately elevated, however, it is unclear as if this may be related to being positive for COVID. The patient will need to have follow up with his PCP and adjustment in his antihypertensive regimen if his blood pressures are still elevated. Of note previously, the patient was on lisinopril, however, he has not been taking this due to insurance issues. The patient also reportedly has a history of type 2 diabetes. His blood sugars have been under excellent control on no diabetic medication. His hemoglobin A1c is 6.8%. He will continue on diabetic diet. PHYSICAL EXAMINATION: On the day of discharge, the patient is awake, alert, and oriented. He is sitting up in the bed, in no acute distress. Cardiac exam reveals normal S1 and S2 with regular rate and rhythm. Lungs are clear, though breath sounds are diminished throughout. Abdomen is soft, nontender, nondistended. Musculoskeletal: The patient moves all 4 extremities symmetrically. FOLLOWUP CONCERNS: The patient is being discharged to home today, 10/31/19. ACTIVITY LEVEL: As tolerated. DIET: Diabetic. CONDITION ON DISCHARGE: Stable. TIME SPENT: Thirty-five minutes was spent discharging this patient. [id number]/CPS #: [id number] MTDD
== END 2019-10-31 13:10 | disposition home or self-care (01) | DRG 720 ==
LOC: ED 16:41 → MED 19:49
PROVIDERS: ADMIT Family Medicine; ATTEND Hospitalist
DX: A41.89 Other specified sepsis (principal); U07.1 COVID-19; J96.01 Acute respiratory failure with hypoxia; Z68.41 Body mass index [BMI] 40.0-44.9, adult; I16.1 Hypertensive emergency; E66.01 Morbid (severe) obesity due to excess calories; I10 Essential (primary) hypertension; E11.9 Type 2 diabetes mellitus without complications; R00.0 Tachycardia, unspecified; G51.0 Bell's palsy; Z86.69 Personal history of other diseases of the nervous system and sense organs; Z79.4 Long term (current) use of insulin; Z79.899 Other long term (current) drug therapy; Z82.49 Family history of ischemic heart disease and other diseases of the circulatory system
CPT/HCPCS: 36415; 71045; 80053; 82550; 82553; 82803; 83036; 83605; 83880; 84100; 84484; 85025; 85379; 86140; 87040; 93005; 99284; A9270-GY; J0456; J1650

== ENCOUNTER 2020-04-08 06:59 | Observation (INO) ==
[2020-04-08] MEDS ORDERED: NS 0.9% 1000 ml BAG 1,000 ML IV ONE ×2 (07:07→08:39)
[2020-04-08 08:19] LABS: ABS Basophils 0.1 10^3/ul (0-0.2); ABS Eosinophils 0.1 10^3/ul (0-0.6); ABS Lymphocytes 2.8 10^3/ul (1.0-4.8); ABS Monocytes 0.5 10^3/ul (0-0.8); ABS Neutrophils 3.3 10^3/ul (1.5-7.7); Eosinophil % 2.1 %; Hematocrit 44 % (42-52); Hemoglobin 16.3 g/dL (14.0-18.0); Lymphocyte % 40.7 %; Mean Corpuscular HGB Conc 37 g/dL (31-36); Mean Corpuscular Hemoglobin 33 pg (27-31); Mean Corpuscular Volume 87 fL (80-94); Mean Platelet Volume 10.8 fL (7.4-10.4); Nucleated Red Blood Cells % 0.2; Platelet Count 228 10^3/uL (150-450); Red Blood Count 5.02 10^6 /uL (4.18-5.48); Red Cell Distribution Width 14 % (10-15); White Blood Count 6.8 10^3/uL (3.5-10.8)
[2020-04-08 08:31] LABS: Urine Appearance Clear; Urine Bilirubin Negative (Negative); Urine Blood Negative (Negative); Urine Color Straw; Urine Glucose 3+(>=500 mg/dL) (Negative); Urine Ketones Negative (Negative); Urine Nitrite Negative (Negative); Urine Protein Negative (Negative); Urine Specific Gravity 1.028 (1.010-1.030); Urine Urobilinogen Negative (Negative)
[2020-04-08 08:49] LABS: ALT 46 U/L (7-52); Albumin 4.4 g/dL (3.2-5.2); Albumin/Globulin Ratio 1.5 (1-3); Alkaline Phosphatase 182 U/L (34-104); Anion Gap 9 mmol/L (2-11); BUN/Creatinine Ratio 6.7 (8-20); Blood Urea Nitrogen 11 mg/dL (6-24); CO2 Carbon Dioxide 24 mmol/L (22-32); Calcium 9.3 mg/dL (8.6-10.3); Chloride 89 mmol/L (101-111); EGFR African American 54.5 (>60); EGFR Non-African American 45.1 (>60); Glucose 587 mg/dL (70-100); Sodium 122 mmol/L (135-145); Total Protein 7.4 g/dL (6.4-8.9)
[2020-04-08] MEDS ORDERED: Insulin GLARGINE 100 un/ml 10 ml VIAL SUBCUT ONE (10:26)
[2020-04-08 10:48] LABS: Amylase 43 U/L (29-103); Cholesterol 417 mg/dL; HDL Cholesterol 22.9 mg/dL; Lipase 110 U/L (11.0-82.0)
[2020-04-08 11:00] LABS: Triglycerides 3860 mg/dL
[2020-04-08 11:16] LABS: LDL Cholesterol Direct 64 mg/dL
[2020-04-08] MEDS ORDERED: Dextrose 50% Syringe 50 ml 25 GM/50 ML SYRINGE IV PUSH PRN ×2 (11:34→12:20)
[2020-04-08] MEDS ORDERED: Ondansetron 4 mg VIAL 2 MG/ML 2 ml VIAL IV PRN (12:16)
[2020-04-08] MEDS ORDERED: Insulin NPH 100 units/ml SUBCUT SCH (14:00)
[2020-04-08 15:07] LABS: CO2 Carbon Dioxide 26 mmol/L (22-32); Calcium 9.1 mg/dL (8.6-10.3); Chloride 95 mmol/L (101-111); EGFR African American 68.8 (>60); EGFR Non-African American 56.9 (>60); Glucose 358 mg/dL (70-100); Sodium 128 mmol/L (135-145)
[2020-04-08 15:08] LABS: Anion Gap 7 mmol/L (2-11)
[2020-04-08] MEDS: NS 0.9% 1000 ml BAG 1,000 ML IV SCH (15:11)
[2020-04-08 15:14] LABS: BUN/Creatinine Ratio 7.5 (8-20); Blood Urea Nitrogen 10 mg/dL (6-24)
[2020-04-08] MEDS: [UNRECOGNIZED DRUG - OTHER] PO SCH (17:44)
[2020-04-08] MEDS ORDERED: hydrALAZINE 20 mg/ml 1 ML Vial IV IV SLOW PU PRN (20:21)
[2020-04-08] MEDS ORDERED: Heparin 5000 UNITS/ML 1 mL VIAL SUBCUT SCH (21:00)
[2020-04-09] MEDS: NS 0.9% 1000 ml BAG 1,000 ML IV SCH (01:04)
[2020-04-09 07:36] LABS: ABS Basophils 0.1 10^3/ul (0-0.2); ABS Eosinophils 0.2 10^3/ul (0-0.6); ABS Lymphocytes 2.9 10^3/ul (1.0-4.8); ABS Monocytes 0.4 10^3/ul (0-0.8); Eosinophil % 3.1 %; Hematocrit 43 % (42-52); Hemoglobin 15.2 g/dL (14.0-18.0); Lymphocyte % 43.8 %; Mean Corpuscular HGB Conc 35 g/dL (31-36); Mean Corpuscular Hemoglobin 31 pg (27-31); Mean Corpuscular Volume 86 fL (80-94); Mean Platelet Volume 10.2 fL (7.4-10.4); Nucleated Red Blood Cells % 0.1; Platelet Count 190 10^3/uL (150-450); Red Blood Count 4.97 10^6 /uL (4.18-5.48); Red Cell Distribution Width 14 % (10-15); White Blood Count 6.5 10^3/uL (3.5-10.8)
[2020-04-09 07:48] LABS: BUN/Creatinine Ratio 6.4 (8-20); Calcium 8.6 mg/dL (8.6-10.3); EGFR African American 87.4 (>60); EGFR Non-African American 72.2 (>60)
[2020-04-09] MEDS: Enoxaparin 40 MG/0.4 ML SYR SUBCUT SCH (07:56)
[2020-04-09 09:02] LABS: Potassium 3.8 mmol/L (3.5-5.0)
[2020-04-09] MEDS ORDERED: Dextrose 50% Syringe 50 ml 25 GM/50 ML SYRINGE IV PUSH PRN (09:34)
[2020-04-09] MEDS ORDERED: Insulin GLARGINE 100 un/ml 10 ml VIAL SUBCUT SCH (10:00)
[2020-04-09] MEDS: [UNRECOGNIZED DRUG - OTHER] PO SCH (18:05)
[2020-04-10 06:03] LABS: ABS Basophils 0.1 10^3/ul (0-0.2); ABS Eosinophils 0.2 10^3/ul (0-0.6); ABS Lymphocytes 2.6 10^3/ul (1.0-4.8); ABS Monocytes 0.3 10^3/ul (0-0.8); ABS Neutrophils 3.1 10^3/ul (1.5-7.7); Eosinophil % 2.8 %; Hematocrit 42 % (42-52); Hemoglobin 14.3 g/dL (14.0-18.0); Lymphocyte % 41.4 %; Mean Corpuscular HGB Conc 34 g/dL (31-36); Mean Corpuscular Hemoglobin 29 pg (27-31); Mean Corpuscular Volume 86 fL (80-94); Mean Platelet Volume 9.9 fL (7.4-10.4); Nucleated Red Blood Cells % 0.1; Platelet Count 180 10^3/uL (150-450); Red Blood Count 4.93 10^6 /uL (4.18-5.48); Red Cell Distribution Width 14 % (10-15); White Blood Count 6.2 10^3/uL (3.5-10.8)
[2020-04-10 06:16] LABS: BUN/Creatinine Ratio 8.3 (8-20); Calcium 8.6 mg/dL (8.6-10.3); EGFR African American 101.2 (>60); EGFR Non-African American 83.6 (>60); Magnesium 1.9 mg/dL (1.9-2.7)
[2020-04-10 06:28] LABS: Potassium 3.6 mmol/L (3.5-5.0)
[2020-04-10 07:24] VITALS: BP 148/87
[2020-04-10] MEDS: Enoxaparin 40 MG/0.4 ML SYR SUBCUT SCH (08:15)
[2020-04-10] MEDS ORDERED: Insulin GLARGINE 100 un/ml 10 ml VIAL SUBCUT SCH (10:00)
== END 2020-04-10 10:35 | disposition home or self-care (01) ==
LOC: MED 06:59 → ED 06:59 → MED 13:28
PROVIDERS: ADMIT Student in an Organized Health Care Education/Training Program; ATTEND Internal Medicine